=== PATIENT | female | born 1995 | race Caucasian/White ===

== ENCOUNTER 2021-05-08 10:17 | Emergency (ER) | payer OTHER ==
[~2021-05-08] VITALS: Ht 162.6 cm; Wt 63.6 kg
[2021-05-08] MEDS ORDERED: PRENTAB9 PO (10:25)
[2021-05-08] MEDS ORDERED: ACET-907 PO (10:25)
--- NOTE | 2021-05-08 13:21 | REP ---
INDICATION: assess fhr. COMPARISON: None. TECHNIQUE: Limited obstetric sonography. Assess heart rate. FINDINGS: Scanning through the gravid uterus demonstrates a viable single intrauterine gestation in cephalic lie. motion is observed and heart rate is recorded at 120 beats per minute. A anterior placenta is seen, grade 3, without evidence of placenta previa. Closed cervical length not seen due to head position. No extrauterine abnormality is observed. Amniotic fluid is subjectively normal. [place] normal 10.9 cm.. heart rate ranged from 111 to 120 beats per minute during the examination.. IMPRESSION: Limited obstetric sonography as above. <Electronically signed by Brain Graves > 05/08/21 [id number]
[2021-05-08 13:41] VITALS: BP 130/88
[2021-05-09] MEDS ORDERED: ACET500P3 PO (16:47)
== END 2021-05-08 13:42 | disposition home or self-care (01) ==
LOC: M ED 10:17
DX: O36.8130 Decreased fetal movements, third trimester, not applicable or unspecified (principal); O99.613 Diseases of the digestive system complicating pregnancy, third trimester; K12.0 Recurrent oral aphthae; Z3A.40 40 weeks gestation of pregnancy
CPT/HCPCS: 76815; 76819; 76820; 99283; U0002

== ENCOUNTER 2021-05-09 15:51 | Inpatient (IN) | payer OTHER ==
[~2021-05-09] VITALS: Ht 162.6 cm; Wt 63.4 kg
[~2021-05-09 15:51] MED LIST: ACET-907 PO; PRENTAB9 PO
[2021-05-09 16:17] VITALS: BP 119/76
[2021-05-09] MEDS ORDERED: ACET500P3 PO (16:47)
--- NOTE | 2021-05-09 20:13 | IPNPDOC ---
Text Note Date of Service The patient was seen on 05/09/21. NOTE 26 yo (one child decreased after ) at 40+4 weeks gestation presented to L&D reporting she was here for her IOL. She had not yet been contacted to come in by L&D staff. She was originally scheduled for an elective IOL on Sunday, but was moved to today per her request. She has no complaints. She reports she has fast labors. Today she denies any vaginal bleeding, discharge, significant contractions, or leakage of fluid. She endorses movement. Chaperoned by L&D RN Vitals - VSS, afebrile, normotensive, non tachycardic General - AAOX3, sitting up in bed, NAD Abdomen - Gravid uterus, no fundal tenderness Cervix - 1/50/-3, posterior. FHR tracing - Cat I with moderate variability, +accels, no decels, sporadic ctx on toco. Bedside TAUS ( anatomy not assessed): Viable SIUP in cephalic presentation. SDP fluid >4cm. +gross movement. Reassuring status and Emma is not in labor. L&D deck acuity is significant at this time. Did not recommend proceeding with an elective IOL r ight now due to safety reasons. Emma and her had the opportunity to ask questions and we discussed our reasoning in detail. They understood the situation and agreed with discharge home. They know they will be first on the list for IOL tomorrow. Return to care sooner for any bleeding, leakage of fluid, contractions, decreased movement, or any other urgent concerns. All patient and questions answered. 20 minutes of care DO PRATIBHA Alejo Fishbone, I+O Rishabh MCKINNON, I+O Vital Signs Date Time Temp Pulse Resp B/P (MAP) Pulse Ox O2 Delivery O2 Flow Rate FiO2 05/09/21 16:17 98.0 81 18 119/76 (90) 100 Room Air ERICA LENNON DO May 09, 2021 20:13
[2021-05-10] VITALS (37 sets, daily range): BP systolic 90–146; BP diastolic 55–92
[2021-05-10] MEDS ORDERED: LACTATED RINGER'S 1000 ML IV STA (10:36)
[2021-05-10] MEDS ORDERED: CARBOPROST TROMETHAMINE 250 MCG/ML AMP IM PRN (10:40)
[2021-05-10] MEDS ORDERED: TRANEXAMIC ACID INJection 1,000 MG in NS 100 ML IV PRN (10:40)
[2021-05-10] MEDS ORDERED: LR 1,000 ML IV SCH ×2 (10:40→18:30)
[2021-05-10] MEDS ORDERED: METHYLERGONOVINE MALEATE 0.2 MG/ML VIAL (J2210) IM PRN (10:40)
[2021-05-10] MEDS ORDERED: OXYTOCIN DRIP 30 UNITS in IV 1 EA IV PRN (10:40)
--- NOTE | 2021-05-10 11:24 | HPEPDOC ---
Obstetrical History & Physical General Date of Admission May 10, 2021 at 09:20 History of Present Illness 26 yo at 40w5d with KATERINE of 05 MAY 2021 presents to L&D for elective IOL. She is feeling well with no concerns. She reports that she has mild irregular contractions. She denies leaking of fluid, vaginal bleeding, and reports positive movement. She has supportive family at the bedside. Chief Complaint: Induction of labor (elective) Information Provided By: Patient Age: 26 : 3 Term: 2 Pre-term: 0 Abortions: 0 Livin Care Care: Good Care Dating Final EDC: May 05, 2021 Final EDC by: LMP, 1st trimester (US) Estimated Date of Confinement: May 05, 2021 EGA at Admission: 40.5 Antepartum Course Height (inches): 64 Pre- weight (lbs.): 110 Admission Weight (lbs.): 143 Change in Weight (lbs.): 33 Past Medical History Past Obstetrical History #1: Past Obstetrical History: Multigravida Date of Delivery: Oct 24, 2017 Gestation: 39 Type of Delivery: Spontaneous Vaginal Del. Weight of Infant (grams): 2608 Complications: Yes (congenital right pulmonary agenesis, dextrocardia, tracheostenosis, retained placenta, IUGR. and infant passed at 18 months) Past Obstetrical History #2: Past Obstetrical History: Multigravida Date of Delivery: Nov 25, 2019 Gestation: 41 Type of Delivery: Spontaneous Vaginal Del. 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 Past Medical History Medical History Celiac disease Surgical History: Tonsilectomy, Steen teeth Family History Significant Family History: Cancer, Diabetes, Hypertension, Lung disease Family History Family history of blood clots, ulcers, HTN, celiac disease, Lung CA, stroke, DM Social History Marital Status: Family situation: Spouse/partner home Psychosocial History: No pertinent psych hx * Smoker: non-smoker Alcohol: Denies Drugs: denies Abuse Violence Screening Have you been hit/kicked/slapp: No Have you been sexually assault: No Imunizations Tdap status: current Allergies Coded Allergies: No Known Drug Allergies (Verified Allergy, Unknown, 05/08/21) Medications Scheduled Acetaminophen (Tylenol Extra Strength) 500 Mg Powd.pack, 500 MG PO PRN No.137/Iron/Folic Acd ( Vitamin Tablet) 1 Each Tablet, 1 TAB PO DAILY Physical Examination Physical Examination GENERAL: Alert and oriented times three. BREAST: . ABDOMEN: Gravid and non-tender to touch. FETUS: Is vertex (VTX) by sterile vaginal examination (SVE), fetus is vertex (VT X) by Froylan. HEART RATE: Regular rate and rhythm. LUNGS: Clear to auscultation (CTA). EXTREMITIES: No edema. No clonus. Deep tendon reflexes (DTRs) + . Vital Signs/I&O Vital Signs Date Time Temp Pulse Resp B/P (MAP) Pulse Ox O2 Delivery O2 Flow Rate FiO2 05/09/21 16:17 98.0 81 18 119/76 (90) 100 Room Air Laboratory Data 24H LABS Laboratory Tests 2 05/10/21 09:48: Serology Scanned Report Hepatitis B Testing Pertinent Laboratoy Data Blood Type: A+ RBC Antibody Screen: Negative HIV: Negative Hepatitis B: Negative Rapid Plasma Reagin: Nonreactive Rubella: Immune Varicella: Immune Chlamydia/Gonorrhea: Negative Group B Streptococcus: Negative Cystic Fibrosis: Negative Glucose Tolerance Test: 96 Steroid Therapy Steroid Therapy: No Vaginal Examination Dilation: 3 cm Effacement: 50% Station: -2 Cervical Consistency: Medium Cervical Position: Middle Presentation: Cephalic presentation Position: Vertex (occiput) Assessment Heart Rate (FHR): 125 Variability: Moderate Accelerations: Present Decelerations: None Tocometer Contractions: Yes Frequency: irregular (every 4-7 minutes) Multi-drug resistant Organism: No history of MDRO Assessment/Plan Assessment IUP at 40w5d Elective IOL GBS negative Hx of retained placenta Plan Admit and orient. Ror Engineer and consent. Diet: clear liquids. Group B Streptococcus (GBS) negative. Labs and intravenous (IV) per unit protocol. Counseled on Pitocin and induction of labor (IOL). Recommended to start IOL with pitocin and then will consider AROM after epidural placement Lactated Ringers (LR): Bolus 1000 mL, then at 125 mL/hr. Anticipate normal spontaneous delivery (). C-S as appropriate. Labor and Delivery Counseling Discussed risks of IOL, pitocin, shoulder dystocia, PPH, repeat retained placenta, and indications for section. She verbalized understanding of all risks and is without any further questions at this time. YONATAN HUTCHINSON [facility] May 10, 2021 11:24
[2021-05-10] MEDS: OXYTOCIN DRIP 30 UNITS in IV 1 EA IV SCH ×3 (11:50→16:56)
[2021-05-10 11:53] LABS: HEMOGLOBIN 13.5 g/dl (12.0-15.5); MEAN CORPUSCULAR HEMOGLOBIN 30.8 pg (27.0-33.0); MEAN CORPUSCULAR HGB CONC 33.8 g/dl (32.0-36.5); MEAN CORPUSCULAR VOLUME 91.3 fl (80.0-96.0); PLATELET COUNT, AUTOMATED 131 10^3/uL (150-450); RED BLOOD COUNT 4.38 10^6/uL (4.00-5.40); WHITE BLOOD COUNT 8.5 10^3/uL (4.0-10.0)
[2021-05-10] MEDS ORDERED: FENTANYL 2MCG/ML ROPIVACAINE 0.2% IN 0.9% NACL 100ML IVBAG As Ordered ONE (14:45)
[2021-05-10] MEDS ORDERED: EPIDURAL COMMENT XX SCH (14:50)
[2021-05-10] MEDS ORDERED: diphenhydrAMINE 50MG/ML VIAL (J1200) IV PRN (14:50)
[2021-05-10] MEDS ORDERED: EPIDURAL/PCA KEYS XX PRN (14:50)
[2021-05-10] MEDS ORDERED: ONDANSETRON 4MG/2ML VIAL IV PRN (14:50)
[2021-05-10] MEDS ORDERED: NALOXONE INJ 0.4MG/1ML VIAL (J2310 PER 1MG) IV PRN (14:50)
[2021-05-10] MEDS ORDERED: LACTATED RINGER'S 1000 ML IV PRN (14:50)
[2021-05-10] MEDS ORDERED: REFRIGERATOR IV KEYS XX PRN (14:50)
[2021-05-10] MEDS ORDERED: ePHEDrine SULFATE 25 MG/5 ML(5MG/ML) SYRINGE IV PRN (14:50)
[2021-05-10] MEDS ORDERED: FENTANYL/ROPIVACAINE/NACL BAG 100 ML EPIDURAL SCH (14:50)
--- NOTE | 2021-05-10 16:38 | IPNPDOC ---
Text Note Date of Service The patient was seen on 05/10/21. NOTE 05/10/21 1630 hours assessment post epidural category 1 strip vertex cervix soft anterior -2 station, 3-4 cm arom clear fluid Pitocin at 8 munits safe to proceed VS,Rishabh, I+O VS, Rishabh, I+O Laboratory Tests 05/10/21 11:23 Vital Signs Date Time Temp Pulse Resp B/P (MAP) Pulse Ox O2 Delivery O2 Flow Rate FiO2 05/10/21 12:31 97.2 61 18 121/77 (92) 99 Room Air Mario Elias MD May 10, 2021 16:38
[2021-05-10] MEDS ORDERED: OXYTOCIN INJ 10 UNITS/ML VIAL (J2590) As Ordered ONE (17:50)
[2021-05-10] MEDS ORDERED: METHYLERGONOVINE MALEATE 0.2 MG TAB PO PRN (18:30)
[2021-05-10] MEDS ORDERED: ACETAMINOPHEN TAB 650MG DOSE (2X325MG) PO PRN (18:30)
[2021-05-10] MEDS ORDERED: RHOGAM 300 MCG (1500 IU) INJ (J2790) IM SCH (18:30)
[2021-05-10] MEDS ORDERED: ANUSOL HC CREAM 30GM TOP PRN (18:30)
[2021-05-10] MEDS ORDERED: OXYTOCIN INJ 10 UNITS/ML VIAL (J2590) IV ONE (18:30)
[2021-05-10] MEDS ORDERED: OXYTOCIN DRIP 30 UNITS in IV 1 EA IV ONE (18:30)
[2021-05-10] MEDS ORDERED: MEASLES,MUMPS,RUBELLA VACCINE INJ (MMR-II) (90707) SC SCH (18:30)
[2021-05-10] MEDS ORDERED: MOM 30ML SUSPENSION UDC PO PRN (18:30)
[2021-05-10] MEDS ORDERED: DIBUCAINE 1% OINTMENT 30GM TOP PRN (18:30)
[2021-05-10] MEDS ORDERED: DOCUSATE SODIUM 100MG CAPSULE PO PRN (18:30)
[2021-05-10 18:38] LABS: CORD GAS ABE A -1.3; CORD GAS HCO3 A 26.2 MEQ/L; CORD GAS O2 SAT A 15.9 %; CORD GAS PCO2 A 54.9 mmHg; CORD GAS PH A 7.296 UNITS; CORD GAS PO2 A 11.1 mmHg; CORD GAS SBC A 21.4 MEQ/L; CORD GAS TCO2 A 27.8 MEQ/L
[2021-05-10 18:41] LABS: CORD GAS ABE V -2.2; CORD GAS HCO3 V 23.4 MEQ/L; CORD GAS O2 SAT V 49.7 %; CORD GAS PCO2 V 43.1 mmHg; CORD GAS PH V 7.352 UNITS; CORD GAS PO2 V 20.7 mmHg; CORD GAS SBC V 21.4 MEQ/L; CORD GAS TCO2 V 24.7 MEQ/L
--- NOTE | 2021-05-10 19:12 | IPN ---
PROGRESS NOTE DATE: 05/10/2021 SUBJECTIVE: This patient's requested circumcision of their male infant. After discussing risks and benefits of circumcision, the medical, the nonmedical indications, the penile block and aftercare, he expressed understanding of penile block aftercare and bleeding, signed the consent form. All questions were answered. Twenty minute discussion. We await clearance by the ivory polisher. cc: Hector Pelletier [facility]
[2021-05-10] MEDS: IBUPROFEN 600MG TAB PO PRN (19:45)
[2021-05-10] MEDS: ACETAMINOPHEN 500 MG TAB PO PRN (20:30)
[2021-05-11] MEDS ORDERED: LR 1,000 ML IV SCH (01:30)
[2021-05-11] MEDS ORDERED: LR 500 ML IV ONE (05:25)
[2021-05-11 06:00] VITALS: BP 114/66
[2021-05-11] MEDS: ACETAMINOPHEN 500 MG TAB PO PRN ×2 (06:11→15:08)
[2021-05-11 06:43] LABS: HEMATOCRIT 28.9 % (36.0-47.0); MEAN CORPUSCULAR HEMOGLOBIN 31.7 pg (27.0-33.0); MEAN CORPUSCULAR HGB CONC 34.3 g/dl (32.0-36.5); MEAN CORPUSCULAR VOLUME 92.6 fl (80.0-96.0); PLATELET COUNT, AUTOMATED 167 10^3/uL (150-450); RED BLOOD COUNT 3.12 10^6/uL (4.00-5.40)
[2021-05-11 06:46] LABS: HEMOGLOBIN 9.9 g/dl (12.0-15.5)
[2021-05-11] MEDS: PRENATAL VITAMINS CHEWABLE TABLET PO SCH (08:37)
[2021-05-11] MEDS: IBUPROFEN 600MG TAB PO PRN (16:59)
[2021-05-11 18:07] VITALS: BP 115/71
[2021-05-11 22:00] VITALS: BP 115/73
[2021-05-12] MEDS: ACETAMINOPHEN 500 MG TAB PO PRN ×2 (01:30→10:14)
[2021-05-12 06:00] VITALS: BP 117/71
--- NOTE | 2021-05-12 06:36 | IPNPDOC ---
Progress Note Date of Service: May 12, 2021 Progress Note SUBJECT: 26 yo G3 now P3002 day #2 status post uncomplicated at 40 5/7 weeks. Male infant, pt desires circumcision. She has been ambulating, voiding spontaneously without issue and tolerating regular diet. Breast feeding without issue. Reports lochia is less than a period. Planning on minipill for contraception. OBJECTIVE: VITAL SIGNS: Within normal limits, afebrile. Alert and oriented times three. normal work of breathing Heart rate: Regular rate . Abdomen: Fundus firm at U-2. Soft, NTTP. ASSESSMENT: 26 yo G3 now P3002 day #2 status post uncomplicated at 40 5/7 weeks. doing well on day 2. Vitals within normal limits, afebrile, hemodynamically stable with no evidence of infection. PLAN: 1. Discharge to home today. 2. Tylenol and Motrin for pain. 3. Encourage breast feeding and ambulation. 4. Has minipill for contraception 5. Routine PP visit in 6 weeks in clinic. 6. Discussed return precautions at length. VS, I&O, 24H, Fishbone Vital Signs/I&O Vital Signs Date Time Temp Pulse Resp B/P (MAP) Pulse Ox O2 Delivery O2 Flow Rate FiO2 05/12/21 06:00 97.8 90 18 117/71 (86) 100 Room Air I&O- Last 24 Hours up to 6 AM 05/12/21 05:59 Output Total 600 ml Balance -600 ml NITA TAVARES M.D. May 12, 2021 06:36
--- NOTE | 2021-05-12 07:06 | OBDS ---
[facility] Obstetrical Discharge Sum. Obstetrical Discharge Summary Date: May 12, 2021 Time: 07:00 : 3 Term: 3 Livin Rubella: Immune Labor Uncomplicated spontaneous vaginal delivery at term. Male . Delivery course uncomplicated A/P, Post Course List any complications Admission diagnosis: term gestation, scheduled IOL Discharge diagnosis: delivered Condition at Discharge: stable Discharge Instructions: home Activity: no heavy lifting >20lbs and strict pelvic rest x6 weeks Diet: regular Medications: tylenol and motrin prn pain. Minipill for contraception Follow-up: call to schedule 6wk PP visit NITA TAVARES M.D. May 12, 2021 07:06
[2021-05-12] MEDS: PRENATAL VITAMINS CHEWABLE TABLET PO SCH (10:14)
--- NOTE | 2021-05-13 08:51 | IPN ---
PROGRESS NOTE DATE: 05/12/2021 Post- day #1. SUBJECTIVE: This lady is a 3 now para 3, had a spontaneous vaginal delivery of a male infant, 7 pounds, 13 ounces, 3550 grams, Apgars of 8 and 9 at 1 and 5 minutes respectively. Over her course during the night she was having some vertigo. Blood pressure, pulse and respirations were normal. No evidence of increased lochia. We decided she was behind in her fluids. After giving her an IV bolus she felt much better, diuresing quite a bit over 130 ccs/hr. The Siegel catheter was removed. The patient walked around the room and around the burgos and was doing much better. A repeat CBC is still pending. Admitting hemoglobin was 13.5, hematocrit was 40.0 and platelets were 131,000. Her vitals this morning: Blood pressure is 114/66, respirations are 18, pulse is 86, temperature is 97.8. She looks better. She feels better. She has an appetite, she is now voiding and passing gas. Abdomen is soft. Uterus is 2 below, lochia is moderate, perineum is intact. No edema. Chest is clear bilaterally at the bases. No wheezes or rhonchi. No CVA tenderness. No rashes, lesions or pruritus. No arthralgias or myalgias. No complaint of joint pain. No complaint of cough, wheeze, shortness of breath or dyspnea on exertion. We are waiting for global human resources director clearance for circumcision. Patient will be discharged tomorrow. Medication pickup at [place] [facility]. Six week checkup at [facility] at which time control will be discussed. Patient is stable. cc: [facility]
== END 2021-05-12 13:30 | disposition home or self-care (01) | DRG 807 ==
LOC: M LDO 15:51 → M LDI 05-10 09:20 → M OBS 05-10 22:40
PROVIDERS: ADMIT Registered Nurse Maternal Newborn; ATTEND Registered Nurse Maternal Newborn
PROC: 10E0XZZ Delivery of Products of Conception, External Approach (ICD-10-PCS; principal; 2021-05-10)
PROC: 3E033VJ Introduction of Other Hormone into Peripheral Vein, Percutaneous Approach (ICD-10-PCS; 2021-05-10)
PROC: 10907ZC Drainage of Amniotic Fluid, Therapeutic from Products of Conception, Via Natural or Artificial Opening (ICD-10-PCS; 2021-05-10)
DX: O48.0 Post-term pregnancy (principal); Z37.0 Single live birth; Z3A.40 40 weeks gestation of pregnancy

== ENCOUNTER 2023-06-21 13:08 | Inpatient (IN) | payer OTHER ==
[2023-06-21] VITALS (34 sets, daily range): BP systolic 86–129; BP diastolic 48–80; O2SAT 99
[~2023-06-21] VITALS: Ht 162.6 cm; Wt 63.0 kg
[~2023-06-21 13:08] MED LIST changes: +ACET500P3 PO
[2023-06-21] MEDS ORDERED: HOME MED LIST COMPLETE! XX SCH (13:45)
[2023-06-21] MEDS ORDERED: TRANEXAMIC ACID INJection 1,000 MG in NS 100 ML IV PRN (14:20)
[2023-06-21] MEDS ORDERED: LACTATED RINGER'S 1000 ML IV STA (14:20)
[2023-06-21] MEDS: LR 1,000 ML IV SCH ×2 (14:20→22:20)
[2023-06-21] MEDS ORDERED: CARBOPROST TROMETHAMINE 250 MCG/ML AMP IM PRN (14:20)
[2023-06-21] MEDS ORDERED: OXYTOCIN DRIP 30 UNITS in IV 1 EA IV PRN ×4 (14:20)
[2023-06-21] MEDS ORDERED: OXYTOCIN DRIP 30 UNITS in IV 1 EA IV SCH ×2 (14:20→21:50)
[2023-06-21] MEDS ORDERED: LR 1,000 ML IV SCH (14:20)
[2023-06-21] MEDS ORDERED: METHYLERGONOVINE MALEATE 0.2MG/ML 1ML VIAL IM PRN (14:20)
[2023-06-21] MEDS ORDERED: LIDOCAINE 1% MDV 20ML VIAL INFIL PRN (14:20)
[2023-06-21 14:59] LABS: HEMATOCRIT 39.5 % (36.0-47.0); HEMOGLOBIN 13.2 g/dl (12.0-15.5); MEAN CORPUSCULAR HEMOGLOBIN 30.3 pg (27.0-33.0); MEAN CORPUSCULAR HGB CONC 33.4 g/dl (32.0-36.5); MEAN CORPUSCULAR VOLUME 90.8 fl (80.0-96.0); PLATELET COUNT, AUTOMATED 171 10^3/uL (150-450); RED BLOOD COUNT 4.35 10^6/uL (4.00-5.40); WHITE BLOOD COUNT 10.6 10^3/uL (4.0-10.0)
[2023-06-21] MEDS ORDERED: diphenhydrAMINE 50MG/ML VIAL IV PRN (16:35)
[2023-06-21] MEDS ORDERED: EPIDURAL/PCA KEYS XX PRN (16:35)
[2023-06-21] MEDS ORDERED: LR 500 ML IV PRN (16:35)
[2023-06-21] MEDS ORDERED: ePHEDrine SULFATE 25 MG/5 ML(5MG/ML) SYRINGE IVP PRN (16:35)
[2023-06-21] MEDS ORDERED: NALOXONE INJ 0.4MG/1ML VIAL IV PRN (16:35)
[2023-06-21] MEDS ORDERED: ONDANSETRON 4MG 2ML VIAL IV PRN ×2 (16:35→21:50)
[2023-06-21] MEDS ORDERED: FENTANYL/ROPIVACAINE/NACL BAG 100 ML EPIDURAL SCH (16:35)
[2023-06-21] MEDS ORDERED: ACETAMINOPHEN TAB 650MG DOSE (2X325MG) PO PRN (21:50)
[2023-06-21] MEDS ORDERED: RHOGAM 300MCG (1500IU) INJ IM SCH (21:50)
[2023-06-21] MEDS ORDERED: DIBUCAINE 1% OINTMENT 30GM TOP PRN (21:50)
[2023-06-21] MEDS ORDERED: DOCUSATE SODIUM 100MG CAPSULE PO PRN (21:50)
[2023-06-21] MEDS ORDERED: METHYLERGONOVINE MALEATE 0.2 MG TAB PO PRN (21:50)
[2023-06-21] MEDS ORDERED: IBUPROFEN 600MG TAB PO PRN (21:50)
[2023-06-22] MEDS: LR 1,000 ML IV SCH (05:39)
[2023-06-22 06:00] VITALS: BP 120/70; O2SAT 97
[2023-06-22] MEDS: ACETAMINOPHEN 500 MG TAB PO PRN ×2 (06:56→18:15)
[2023-06-22 07:00] LABS: HEMATOCRIT 41.1 % (36.0-47.0); HEMOGLOBIN 13.7 g/dl (12.0-15.5); MEAN CORPUSCULAR HGB CONC 33.3 g/dl (32.0-36.5); PLATELET COUNT, AUTOMATED 156 10^3/uL (150-450); RED BLOOD COUNT 4.42 10^6/uL (4.00-5.40); WHITE BLOOD COUNT 14.5 10^3/uL (4.0-10.0)
[2023-06-22] MEDS: PRENATAL VITAMINS CHEWABLE TABLET PO SCH (09:03)
[2023-06-22] MEDS: IBUPROFEN 800 MG TAB PO PRN ×2 (12:05→20:07)
[2023-06-22 18:00] VITALS: BP 114/61; O2SAT 98
[2023-06-23] MEDS: ACETAMINOPHEN 500 MG TAB PO PRN (00:16)
[2023-06-23 06:01] VITALS: BP 108/70; O2SAT 98
[2023-06-23] MEDS: PRENATAL VITAMINS CHEWABLE TABLET PO SCH (08:34)
[2023-06-23] MEDS ORDERED: MEASLES,MUMPS,RUBELLA VACCINE INJ (MMR-II) SC.IMMUN ONE (09:00)
== END 2023-06-23 13:40 | disposition home or self-care (01) | DRG 807 ==
LOC: M LDI 13:08 → M OBS 23:40
PROVIDERS: ADMIT Advanced Practice Midwife; ATTEND Obstetrics & Gynecology
PROC: 10E0XZZ Delivery of Products of Conception, External Approach (ICD-10-PCS; principal; 2023-06-21)
PROC: 10907ZC Drainage of Amniotic Fluid, Therapeutic from Products of Conception, Via Natural or Artificial Opening (ICD-10-PCS; 2023-06-21)
PROC: 3E033VJ Introduction of Other Hormone into Peripheral Vein, Percutaneous Approach (ICD-10-PCS; 2023-06-21)
DX: O48.0 Post-term pregnancy (principal); Z37.0 Single live birth; Z3A.40 40 weeks gestation of pregnancy